=== PATIENT | male | born 1960 | race Caucasian/White ===

== ENCOUNTER → 2020-09-05 | Outpatient (CLI) | payer BC ==
[~2020-09-05] MED LIST: ALEVE220 M1 PO; ASPIRIN 325MG325 MG PO; BRILINTA90 MG PO; ECOTRIN81 MG PO; HABITROL 21 MG P1 EA TOP; IMDUR ER TAB 3030 MG PO; LIPITOR TAB 2020 MG PO; LOPRESSOR 25 MG25 MG PO; PRINIVIL20 MG PO
== END ==
LOC: KOH-I 09-04 14:00
DX: F17.210 Nicotine dependence, cigarettes, uncomplicated (principal)
CPT/HCPCS: 71271

== ENCOUNTER 2021-06-22 16:28 | Inpatient (IN) | payer BC ==
[~2021-06-22] VITALS: Ht 180.3 cm; Wt 137.9 kg
[~2021-06-22 16:28] MED LIST changes: +AUGMENTIN 875-1 EACH PO; +BRILINTA60 MG PO; -BRILINTA90 MG PO; +ETODOLAC500 MG PO; +FEXOFENADINE H180 MG PO; +LASIX40 MG PO; +LEVOTHYROXINE100 MCG PO; +LIPITOR40 MG PO; +SINGULAIR10 MG PO
[2021-06-22 17:06] LABS: HEMOGLOBIN 14.1 gm/dl (14.0-17.5); RED BLOOD COUNT 4.76 M/UL (4.20-5.50); WHITE BLOOD COUNT 6.7 K/UL (4.5-11.0)
[2021-06-22 17:24] LABS: BUN/CREATININE RATIO 30 (0-10)
[2021-06-22] MEDS ORDERED: PROAIR DIGIHAL90 MCG INH (18:19)
[2021-06-22] MEDS ORDERED: PREDNISONE10 M1 PO (18:21)
[2021-06-23 07:12] LABS: HEMOGLOBIN 13.4 gm/dl (14.0-17.5); RED BLOOD COUNT 4.61 M/UL (4.20-5.50)
[2021-06-23 07:23] LABS: BUN/CREATININE RATIO 28 (0-10)
[2021-06-23 07:28] LABS: WHITE BLOOD COUNT 3.6 K/UL (4.5-11.0)
[2021-06-24 05:46] LABS: HEMOGLOBIN 13.1 gm/dl (14.0-17.5); RED BLOOD COUNT 4.57 M/UL (4.20-5.50); WHITE BLOOD COUNT 8.9 K/UL (4.5-11.0)
[2021-06-24 06:10] LABS: BUN/CREATININE RATIO 35 (0-10)
--- NOTE | 2021-06-25 01:20 | NUR ---
0110 CONTACTED PROVIDER REGARDING ORDERS FOR AIRVO DUE TO PATIENTS O2 SAT OF 87% MAXED OUT ON HFNC. ORDERS PLACED AND RT WAS CONTACTED.
[2021-06-25 06:48] LABS: HEMOGLOBIN 12.8 gm/dl (14.0-17.5); RED BLOOD COUNT 4.53 M/UL (4.20-5.50); WHITE BLOOD COUNT 9.3 K/UL (4.5-11.0)
[2021-06-25 07:06] LABS: BUN/CREATININE RATIO 34 (0-10)
[2021-06-26 07:00] LABS: RED BLOOD COUNT 4.46 M/UL (4.20-5.50)
[2021-06-26 07:37] LABS: BUN/CREATININE RATIO 40 (0-10)
[2021-06-27 07:01] LABS: HEMOGLOBIN 13.5 gm/dl (14.0-17.5); RED BLOOD COUNT 4.64 M/UL (4.20-5.50); WHITE BLOOD COUNT 13.5 K/UL (4.5-11.0)
[2021-06-27 07:26] LABS: BUN/CREATININE RATIO 36 (0-10)
[2021-06-27] MEDS ORDERED: PROAIR HFA8.5 GM INH (11:09)
[2021-06-27] MEDS ORDERED: DECADRON6 MG PO (11:09)
[2021-06-28 07:49] LABS: HEMOGLOBIN 13.1 gm/dl (14.0-17.5); RED BLOOD COUNT 4.59 M/UL (4.20-5.50); WHITE BLOOD COUNT 11.8 K/UL (4.5-11.0)
[2021-06-28 08:30] LABS: BUN/CREATININE RATIO 39 (0-10)
== END 2021-06-28 12:15 | disposition home or self-care (01) | DRG 177 ==
LOC: ER1 16:28 → CDU 17:44 → M/S 17:44
PROVIDERS: Emergency Medicine; Internal Medicine; Physician Assistant Medical; ADMIT Internal Medicine
PROC: XW033H5 Introduction of Tocilizumab into Peripheral Vein, Percutaneous Approach, New Technology Group 5 (ICD-10-PCS; principal; 2021-06-22)
PROC: 3E0333Z Introduction of Anti-inflammatory into Peripheral Vein, Percutaneous Approach (ICD-10-PCS; 2021-06-22)
PROC: XW033E5 Introduction of Remdesivir Anti-infective into Peripheral Vein, Percutaneous Approach, New Technology Group 5 (ICD-10-PCS; 2021-06-22)
PROC: 5A0955A Assistance with Respiratory Ventilation, Greater than 96 Consecutive Hours, High Flow/Velocity Cannula (ICD-10-PCS; 2021-06-23)
PROC: 5A09357 Assistance with Respiratory Ventilation, Less than 24 Consecutive Hours, Continuous Positive Airway Pressure (ICD-10-PCS; 2021-06-23)
DX: U07.1 COVID-19 (principal); J12.82 Pneumonia due to coronavirus disease 2019; J96.01 Acute respiratory failure with hypoxia; J44.0 Chronic obstructive pulmonary disease with (acute) lower respiratory infection; Z68.41 Body mass index [BMI] 40.0-44.9, adult; F17.210 Nicotine dependence, cigarettes, uncomplicated; E03.9 Hypothyroidism, unspecified; I10 Essential (primary) hypertension; E66.01 Morbid (severe) obesity due to excess calories; M19.90 Unspecified osteoarthritis, unspecified site; G47.33 Obstructive sleep apnea (adult) (pediatric); E78.5 Hyperlipidemia, unspecified; I25.10 Atherosclerotic heart disease of native coronary artery without angina pectoris; T38.0X5A Adverse effect of glucocorticoids and synthetic analogues, initial encounter; E11.65 Type 2 diabetes mellitus with hyperglycemia; Z95.5 Presence of coronary angioplasty implant and graft; Z90.49 Acquired absence of other specified parts of digestive tract; Z82.49 Family history of ischemic heart disease and other diseases of the circulatory system; Z82.3 Family history of stroke; Z83.3 Family history of diabetes mellitus; Z99.81 Dependence on supplemental oxygen; Z79.4 Long term (current) use of insulin; Z23 Encounter for immunization
CPT/HCPCS: 36415; 36600; 71045; 80048; 80053; 80202; 82550; 82553; 82728; 82803; 82962; 83036; 83605; 83735; 83874; 83880; 84484; 85025; 85027; 85379; 86140; 87040; 93005; 94640; 94644; 94664; 94760; 96374; 96375; 99285; J0692; J1100; J1650; J2185; J2930; J3370; J7030; J7070; Q0249; Q9967; U0002

== ENCOUNTER → 2021-07-14 | Outpatient (CLI) | payer BC ==
[~2021-07-14] MED LIST changes: +DECADRON6 MG PO; +PREDNISONE10 M1 PO; +PROAIR DIGIHAL90 MCG INH; +PROAIR HFA8.5 GM INH
== END ==
LOC: EXRD 11:35
DX: Z86.16 Personal history of COVID-19 (principal); R91.8 Other nonspecific abnormal finding of lung field; J18.9 Pneumonia, unspecified organism
CPT/HCPCS: 71046